=== PATIENT | female | born 1990 | race Caucasian/White ===

== ENCOUNTER 2023-10-29 09:27 | Day surgery (SDC) | payer OTHER ==
[~2023-10-29 09:27] MED LIST: LIDOCAINE 1% (10MG/ML) FOR IV START INTRADERMA PRN
[2023-10-29 10:17] VITALS: TEMP 98.1
[2023-10-29] MEDS: LACTATED RINGERS 1,000 ML IV SCH (10:24)
[2023-10-29] MEDS: IV FLUID CONTINUATION 1,000 ML IV ONE (10:25)
[2023-10-29] MEDS ORDERED: PROPOFOL 10 MG/ML 20 ML VIAL IV ONE (10:35)
--- NOTE | 2023-10-29 10:59 | P.PCN ---
Date of Procedure: 10/29/23 Procedure(s) Performed: BRIEF HISTORY: Patient is a 33 with snare [id number] pleasant white female scheduled for an elective colonoscopy as a part of evaluation of chronic diarrhea and intermittent rectal bleeding and strong family history of colon cancer. Her father was diagnosed with colon cancer at age 65, paternal aunt, paternal cousin and 2 maternal aunts all in the 40s and 50s respectively. PROCEDURE PERFORMED: Colonoscopy biopsy and snare polypectomy. PREOPERATIVE DIAGNOSIS: Screening/rectal bleeding and strong family history of colon cancer. IV sedation per Anesthesia. PROCEDURE: After informed consent was obtained, the patient, was brought into the endoscopy unit. IV sedation was administered by Anesthesia under continuous monitoring. Digital rectal examination was normal. Initially the Olympus CF-160 flexible video colonoscope was then inserted in the rectum, gradually advanced into the cecum without any difficulty. Careful examination was performed as the scope was gradually being withdrawn. Ileocecal valve and the appendiceal orifice were visualized and appeared normal. Prep was excellent. Ileum was intubated in 20 cm of which were visualized and appeared normal. Mucosa of the cecum, ascending colon, transverse colon, descending colon, ulcer in the proximal sigmoid colon at 45 cm from the anal verge there was a 2 cm long pedunculated polyp that was removed by snare polypectomy. In the proximal rectum there was a another 2 cm broad-based polyp removed by snare polypectomy. Rest of the sigmoid colon, and rectum appeared normal. Biopsies were done from the ascending and descending colon rule out microscopic/collagenous colitis. Retroflexion was performed in the rectum and no lesions were seen. The patient tolerated the procedure well. IMPRESSION: 2 cm pedunculated proximal sigmoid colon polyp status post polypectomy 2 cm proximal rectal polyp status post polypectomy. RECOMMENDATIONS: Findings of this examination were discussed with the patient as well as her family. She was advised to follow-up with the biopsy results. If the biopsy reveals adenoma she can have repeat colonoscopy in 3 years. .
[2023-10-29 11:30] VITALS: BP 114/72; PULSE 59; RESP 17
== END 2023-10-29 11:45 | disposition home or self-care (01) ==
LOC: ORWHC2ENDO 09:27 → EDSEX 10:45 → ORWHC2ENDO 11:45
PROVIDERS: ATTEND Internal Medicine Gastroenterology
DX: D12.5 Benign neoplasm of sigmoid colon (principal); D12.8 Benign neoplasm of rectum; Z80.0 Family history of malignant neoplasm of digestive organs; Z87.891 Personal history of nicotine dependence; Z91.040 Latex allergy status; Z79.899 Other long term (current) drug therapy
CPT/HCPCS: 81025; 88305; 45385; J2704